=== PATIENT | male | born 1960 | race Caucasian/White ===

== ENCOUNTER → 2025-07-28 14:39 | Outpatient (REF) | payer BC, SELFPAY | LOC: HWRAD 14:39 | PROVIDERS: ATTENDING PHYSICIAN Internal Medicine | DX: M25.562 Pain in left knee (principal) | CPT/HCPCS: 73564 ==

== ENCOUNTER 2025-09-29 19:41 | Emergency (ER) | payer BC, SELFPAY ==
[2025-09-29 19:57] VITALS: BP 197/106
[2025-09-29 20:24] LABS: Hematocrit 43.7 % (39.0-52.0); Hemoglobin 14.7 g/dL (13.0-18.0); Mean Corp Hgb Conc. 33.6 g/dL (33.0-37.0); Mean Corpuscular Volume 88.3 fL (80.0-94.0); Nucleated Red Blood Cells % 0 % (-); Platelet Count 261 10^3/uL (130-400); Red Cell Dist. Width 12.8 % (11.5-14.5)
[2025-09-29 20:54] LABS: ALT (SGPT) 11 U/L (0-50); AST (SGOT) 22 U/L (17-59); Albumin 4.8 g/dl (3.5-5.0); Alkaline Phosphatase 66 U/L (38-126); Blood Urea Nitrogen 11 mg/dl (9-20); Calcium 9.9 mg/dl (8.4-10.2); Carbon Dioxide 30 mmol/L (22-30); Chloride 98 mmol/L (98-107); Glucose 188 mg/dl (70-99); Potassium 4.3 mmol/L (3.5-5.1); Sodium 137 mmol/L (135-145); Total Protein 7.9 g/dl (6.3-8.2); eGFR > 60.00
[2025-09-29 20:58] LABS: Troponin I < 0.012 ng/ml
[2025-09-29 21:03] VITALS: BP 160/91
[2025-09-29 21:14] VITALS: BMI 35.3
[2025-09-29 22:00] VITALS: BP 153/76
[2025-09-29 22:14] LABS: Magnesium 1.9 mg/dl (1.6-2.3)
[2025-09-29 22:55] LABS: TSH 4.82 uIU/ml (0.47-4.68)
--- NOTE | 2025-09-29 23:45 | ED.GENMED ---
History of Present Illness
General
Chief Complaint: Chest Pain
Source: patient and spouse
Time Seen by Provider: 09/29/25 20:59
History of Present Illness
History of Present Illness:
Note:
CHIEF COMPLAINT(S)
Palpitations and shortness of breath.
HISTORY OF PRESENT ILLNESS
The patient is a 65-year-old male with a known history of aortic stenosis, who presented with palpitations and shortness of breath. The symptoms commenced around 9:30 PM while at work. Initially, the patient felt their heart pounding, which was
accompanied by shortness of breath. These symptoms lasted for a couple of hours. The patient reported that once the palpitations ceased, their breathing also improved. There was no chest pain reported. The patient has not experienced similar
symptoms in the past and denies any history of arrhythmias like atrial fibrillation. The patients micro computer specialist is located across the street from the hospital, though the patient does not recall the name. The patient denies recent illness,
including fever or cough, and reports feeling generally well over the past few days. The patient works in [employer] and was working at the time of symptom onset. The patient does not regularly check his pulse at home and cannot
specify a usual heart rate. There is no history of recent dehydration, illness, or electrolyte disturbances mentioned.
The patient�s symptoms improved upon arrival to the emergency department, and the patients current heart rate is approximately 100 beats per minute. The patients heart murmur was noted on examination.
CHRONIC MEDICAL CONDITIONS SIGNIFICANTLY AFFECTING CARE
Aortic stenosis.
PHYSICAL EXAM
General: Alert, cooperative, no acute distress.
Skin: Warm, dry.
Head: Normocephalic, atraumatic.
Neck: Supple, trachea midline.
Eyes, Ears, Nose, Mouth, and Throat: Oral mucosa moist.
Cardiovascular: Heart murmur appreciated, regular rhythm; cardiac rate approximately 101 beats per minute. No peripheral edema.
Respiratory: Lungs clear to auscultation, respiration non-labored.
Gastrointestinal: Abdomen nondistended.
Back: Normal range of motion, normal alignment.
Musculoskeletal: Normal range of motion, normal strength.
Neurological: No focal neurological deficit observed, speech is low in volume.
Psychiatric: Cooperative, appropriate mood and affect.
PROBLEM LIST
Acute:
- Palpitations
- Shortness of breath
Chronic:
- Aortic stenosis
PLAN
1. Monitor the patient�s cardiac rhythm and heart rate.
2. Review laboratory results to assess for potential electrolyte imbalances or other underlying causes.
3. Conduct a chest X-ray to evaluate heart size and lung alexander.
4. Administer intravenous fluids to address potential dehydration.
5. Review any available echocardiogram or other relevant cardiac studies in the hospital system.
6. Continue observation and regular assessments in the emergency department.
DIFFERENTIAL DIAGNOSIS
The Differential Diagnosis includes, in no particular order and is not limited to:
1. Arrhythmia
2. Dehydration
3. Electrolyte imbalance
4. Thyroid dysfunction
5. Exacerbation of aortic stenosis
6. Pulmonary embolism
7. Anxiety or panic attack
8. Cardiomyopathy
9. Acute coronary syndrome
10. Hypertensive emergency
EKG
My independent EKG interpretation is:
- Rhythm: Sinus tachycardia
- Heart Rate: 111 bpm
- [place]: Left axis deviation
- Notable Findings: Evidence of left anterior fascicular block
- ST Segment Changes: None observed
Disposition:
SUMMARY OF ENCOUNTER
A 65-year-old male with a known history of aortic stenosis presented to the emergency department with palpitations and shortness of breath. The symptoms began while at work, lasted for a couple of hours, and improved upon arrival at the emergency
department. The patients initial EKG showed sinus tachycardia with left anterior fascicular block. Initial evaluation included CBC, chemistry, and troponin, all of which were unremarkable. A TSH test showed no abnormalities, and a chest X-ray was
normal. The patients heart rate stabilized to 71 bpm, and blood pressure was recorded at 153/76 mmHg. Based on his improvement and the lack of significant findings, he was deemed stable for discharge with cardiology follow-up.
DISPOSITION
Discharge with cardiology follow-up.
ASSESSMENT
Palpitations and shortness of breath, likely secondary to an episode of arrhythmia or exacerbation of aortic stenosis.
PLAN
1. Monitor heart rate and rhythm.
2. Discharge with cardiology follow-up.
INDEPENDENT REVIEW OF LABS AND INTERPRETATION OF TESTS
- My independent review of CBC is within normal limits.
- My independent review of chemistry is within normal limits.
- My independent review of troponin is negative.
- My independent review of TSH is unremarkable.
- My independent review of the chest X-ray shows normal findings.
MEDICAL DECISION MAKING
- Number and Complexity of Problems Addressed:
Chronic conditions affecting care: Aortic stenosis
Differential Diagnosis:
1. Arrhythmia
2. Dehydration
3. Electrolyte imbalance
4. Thyroid dysfunction
5. Exacerbation of aortic stenosis
6. Pulmonary embolism
7. Anxiety or panic attack
8. Cardiomyopathy
9. Acute coronary syndrome
10. Hypertensive emergency
- Data:
Category 1:
- Labs: CBC, chemistry, troponin, TSH reviewed and interpreted.
- Radiology: My independent interpretation of chest X-ray is normal.
Category 2: None mentioned.
Category 3: None mentioned.
- Risk:
Consider admission for observation but remains in normal sinus rhythm. Recommended close outpatient follow-up with cardiology
DIAGNOSIS
1. Palpitations (ICD-10: R00.2)
2. Shortness of breath (ICD-10: R06.02)
3. Aortic stenosis (ICD-10: I35.0)
Phy Exam
Physical Exam
Physical Exam:
.
Scores
Heart Score for Chest Pain Patients
STEMI patient?: Not applicable
Course
Orders/Labs/Results
Orders:
Orders
09/29/25 19:43
EKG [Electrocardiogram (*1)] Urgent
Reason for Study: Chest Pain
EKG- Treatment ONCE
09/29/25 20:16
Comprehensive Metabolic Panel Urgent
Magnesium Urgent
Comment: ADD ON
TSH Urgent
Comment: CHRISTIE N
09/29/25 20:17
Complete Blood Count/With Diff Urgent
Troponin I Urgent
09/29/25 21:40
Add On- LAB Urgent
Tests Added?: Mg, TSH
09/29/25 21:41
CR Chest - 2 Views Urgent
Comment:
Reason For Exam: palpitations
Abnormal Lab Results
09/29/25 09/29/25
20:16 20:17
Lymphocytes % 17.2 L %
(20.5-51.1)
Glucose 188 H mg/dl
(70-99)
TSH 4.82 H uIU/ml
(0.47-4.68)
09/29/25 20:17
09/29/25 20:16
Vital Signs
Initial and Last Documented VS:
Initial Vital Signs
Temp Pulse Resp BP Pulse Ox
97.5 F 111 22 197/106 98
09/29/25 19:57 09/29/25 19:57 09/29/25 19:57 09/29/25 19:57 09/29/25 19:57
Last Documented Vital Signs
Temp Pulse Resp BP Pulse Ox
97.5 F 72 14 153/76 97
09/29/25 19:57 09/30/25 00:00 09/30/25 00:00 09/29/25 22:00 09/30/25 00:00
*Pulse Oximetry
SaO2: 97
Oxygen Mode of Delivery: Room air
Patient hypoxic: no
*Critical Care Note
Total Time (30-74mins, 75-104mins- exclusive of procedures): Not Applicable
ED Attending Note
-
Portions of this chart may have been created with voice recognition software.� Occasional wrong word or��sound alike� substitutions may have occurred due to the inherent limitations of voice recognition software.
Discharge Plan
Departure
Patient Disposition: Home (Routine Discharge)
Date of Disposition: 09/29/25
Time of Disposition: 23:58
Patient with high blood pressure during this ER visit?: Yes
Discharge Problem:
Palpitations
Instructions: Palpitations, BLOOD PRESSURE
Referrals:
Samir Deleon MD [Active, Cardiology]
Michael Yao CRNP [Family Provider]
Activity Restrictions/Additional Instructions:
Please see your doctor or cardiology in the next 3 to 5 days for follow-up and reevaluation. Further workup regarding your murmur may be necessary. In addition, they may consider a Holter monitor. Return immediately for worsening symptoms,
shortness of breath, chest pain, lightheadedness, passing out episode or any other concerns.
Interventions
Interventions:
*General Assessment Last Done: 09/29/25 21:16
*Neglect/Abuse Screening Last Done: 09/29/25 19:57
*ED COVID-19 Vaccine History Last Done: 09/29/25 21:16
*ED Influenza Vaccine History Last Done: 09/29/25 21:16
[facility] Risk Assessment Tool Last Done: 09/29/25 21:15
*Risk Screen - Suicide (C-SSRS) Last Done: 09/29/25 19:57
*Nursing Disposition Last Done: 09/30/25 00:19
ED- Cardiac Assessment Last Done: 09/29/25 21:16
Discharge Date and Time
Discharge Date/Time: 09/30/25 00:22
Print Language: ALBANIAN
== END 2025-09-30 00:22 | disposition home or self-care (01) ==
LOC: EMR 19:41
PROVIDERS: EMERGENCY PHYSICIAN Emergency Medicine
DX: R00.2 Palpitations (principal); R07.9 Chest pain, unspecified; R06.02 Shortness of breath; I35.0 Nonrheumatic aortic (valve) stenosis
CPT/HCPCS: 99285; 71046; 80053; 83735; 84443; 84484; 85025; 93005